=== PATIENT | female | born 1995 | race American Indian/Alaskan Native ===

== ENCOUNTER 2021-06-26 03:36 | Emergency (ER) | payer OTHER ==
[2021-06-26 03:44] VITALS: BP 151/101
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
== END 2021-06-26 05:08 | disposition home or self-care (01) ==
LOC: ED 03:36
DX: S16.1XXA Strain of muscle, fascia and tendon at neck level, initial encounter (principal); M62.838 Other muscle spasm; Z98.890 Other specified postprocedural states; Z91.018 Allergy to other foods; V89.2XXA Person injured in unspecified motor-vehicle accident, traffic, initial encounter; Y93.89 Activity, other specified; Y92.89 Other specified places as the place of occurrence of the external cause; Y99.8 Other external cause status
CPT/HCPCS: 72040; 99283